=== PATIENT | female | born 1965 | race Caucasian/White ===

== ENCOUNTER → 2020-08-15 | Outpatient (CLI) | payer OTHER ==
--- NOTE | 2020-08-15 15:30 | RADIOLOGY REPORT (SQ) ---
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 NUMBER OF VIEWS: Three views. TECHNIQUE: AP and oblique views of the sacroiliac joints. LIMITATIONS: None. FINDINGS: MINERALIZATION: Normal. BONES: No acute fracture or dislocation. No worrisome bone lesions. No significant osteophytes. JOINTS: The sacroiliac joints are patent. No unusual widening, sclerosis, or fusion. SOFT TISSUES: No soft tissue swelling. No radio-opaque foreign body. OTHER: No other significant finding. IMPRESSION: NORMAL STUDY OF THE SACROILIAC JOINTS. TECHNICAL DOCUMENTATION: JOB ID: [id number] 2010 [employer]- All Rights Reserved Reading location - IP/workstation name: [email or web address]
--- NOTE | 2020-08-15 15:32 | RADIOLOGY REPORT (SQ) ---
EXAM DESCRIPTION: L SPINE WHOLE IMAGES COMPLETED DATE/TIME: 08/15/2020 2:54 pm REASON FOR STUDY: M47.817 SPONDYLS W/O MYELOPATHY OR RADICULOPATHY, LUMBOSACR REGION M47.817 SPONDY LS W/O MYELOPATHY OR RADICULOPATHY, LUMBOSACR M46.1 SACROILIITIS, NOT ELSEWHERE CLASSIFIED COMPARISON: None. NUMBER OF VIEWS: Five views including obliques. TECHNIQUE: AP, lateral, oblique, and sacral radiographic images acquired of the lumbar spine. LIMITATIONS: None. FINDINGS: MINERALIZATION: Normal. SEGMENTATION: Normal. No transitional anatomy. ALIGNMENT: Mild levoscoliosis. Grade 1 anterolisthesis of L4 on L5. VERTEBRAE: Maintained height. No fracture or worrisome bone lesion. DISCS: Disc narrowing at L4-5. POSTERIOR ELEMENTS: Mild hypertrophic facet changes from L4-S1. HARDWARE: None in the spine. PARASPINAL SOFT TISSUES: Normal. PELVIS: Intact as visualized. No fractures or worrisome bone lesions. SI joints intact. OTHER: No other significant finding. IMPRESSION: Mild scoliosis. Anterolisthesis of L4 on L5. Degenerative disc disease. Facet arthrop athy. TECHNICAL DOCUMENTATION: JOB ID: [id number] 2010 [employer]- All Rights Reserved Reading location - IP/workstation name: [email or web address]
== END ==
LOC: RAD 14:18
PROVIDERS: ATTEND Nurse Practitioner Family
DX: M47.817 Spondylosis without myelopathy or radiculopathy, lumbosacral region (principal); M51.36 Other intervertebral disc degeneration, lumbar region; M46.1 Sacroiliitis, not elsewhere classified
CPT/HCPCS: 72110; 72200

== ENCOUNTER → 2020-09-05 | Outpatient (CLI) | payer OTHER ==
--- NOTE | 2020-09-06 00:29 | EKG REPORT ---
SEVERITY:- NORMAL ECG - SINUS RHYTHM : Confirmed by: Chris Cook 06-Sep-2020 00:28:42
--- OUTSIDE RECORDS SUMMARY | 2020-09-06 15:43 | XMS REPORT ---
:1965 Author Organization [facility] Address [facility] [place] [address] [place] [id number] Care Team Providers Name Role Phone Lou Flynn Primary Care Physician Unavailable Daniel Attending Clinician Unavailable Surendra Coyle Attending Clinician Unavailable Allergies, Adverse Reactions, Alerts Allergy Allergy Status Severity Reaction(s) Onset Inactive Treating C omments Name Type Date Date Clinician arithromyci arithromyc Active Unknown n in 04-23 00:00: 00 arithromyci arithromyc Inactive Unknown n in 02-23 00:00: 00 ERYTHROMYCI Drug Active U N allergy 10-26 LACTOBIONAT 00:00: E 00 Medications Ordered Filled Start Stop Current Ordering Indication Dosage Frequency Signature Comments Components Medication Medication Date Date Medication? Clinician (SIG) Name Name Arthrotec 2019- No TID 1 tablet 50-0.2 MG 02-23 with food 00:00: 00:00 Orally 00 :00 Three times a day PredniSONE 2018- No as 10 MG (48) 02-23 directed 00:00: 00:00 Orally as 00 :00 directed Viberzi 100 2019- No BID 1 tablet MG 01-31 with food 00:00: 00:00 Orally 00 :00 Twice a day Atenolol 50 Yes QD 1 tablet MG Orally Once a day Venlafaxine Yes QD 1 capsule HCl ER 150 Orally MG Once a day Omeprazole No QD as 40 MG directed Orally Once a day Meloxicam No QD 1 tablet 15 MG Orally Once a day Horizant Yes QD 2 tablets 300 MG Orally Once a day Omeprazole Yes QD 1 capsule 20 mg Orally Once a day Problems Condition Condition Condition Status Onset Resolution Last Treatin g Comments Name Details Category Date Date Treatment Clinician Date Anxiety Anxiety Problem Active disorder disorder, 01-31 unspecified 00:00: 00 Essential Essential Problem Active hypertensio (primary) 01-31 n hypertensio 00:00: n 00 Irritable Irritable Problem Active bowel bowel 01-31 syndrome syndrome 00:00: with with 00 diarrhea diarrhea Gastro-esop Gastro-esop Problem Active hageal hageal 01-31 reflux reflux 00:00: disease disease 00 with with esophagitis esophagitis Procedures Procedure Date / Time Performed Performing Clinician Devic e OFFICE/OUTPATIENT VISIT EST 2020-08-27 14:15:00 OFFICE/OUTPATIENT VISIT EST 2020-06-25 14:15:00 OFFICE/OUTPATIENT VISIT EST 2020-05-10 10:45:00 OFFICE/OUTPATIENT VISIT [facility] 2018-10-26 09:45:00 Results Test Description Test Time Test Comments Text Results Atomic Results Result Comments CBC (INCLUDES DIFF/PLT) 2020-05-10 12:43:00 Test Item Value Reference Range Comments EOSINOPHILS (test code = 37752305) 2.9 % HEMATOCRIT (test code = 68618154) 39.2 % 35.0-45.0 MCV (test code = 48607738) 98.5 fL 80.0-100.0 RED BLOOD CELL COUNT (test code = 45478900) 3.98 Million/uL 3.80 -5.10 LYMPHOCYTES (test code = 10858975) 25.4 % ABSOLUTE LYMPHOCYTES (test code = 65192865) 1600 cells/uL 850- 3900 MCHC (test code = 79180969) 32.9 g/dL 32.0-36.0 MONOCYTES (test code = 00514874) 7.6 % ABSOLUTE BASOPHILS (test code = 53279603) 38 cells/uL 0-200 ABSOLUTE EOSINOPHILS (test code = 47382307) 183 cells/uL 15-5 00 RDW (test code = 44802617) 13.0 % 11.0-15.0 MPV (test code = 49677673) 10.6 fL 7.5-12.5 HEMOGLOBIN (test code = 07980600) 12.9 g/dL 11.7-15.5 ABSOLUTE NEUTROPHILS (test code = 96349107) 4001 cells/uL 1500 -7800 NEUTROPHILS (test code = 27130888) 63.5 % BASOPHILS (test code = 95528829) 0.6 % MCH (test code = 89064404) 32.4 pg 27.0-33.0 PLATELET COUNT (test code = 60227409) 295 Thousand/uL 140-400 WHITE BLOOD CELL COUNT (test code = 66801966) 6.3 Thousand/uL 3. 8-10.8 ABSOLUTE MONOCYTES (test code = 59471216) 479 cells/uL 200-95 0 TSH W/REFLEX TO [id number] 12:43:000.890.890.89COMPREHENSIVE METABOLIC PANEL 2020-05-10 12:43:00 Test Item Value Reference Range Comments SODIUM (test code = 16545792) 137 mmol/L 135-146 eGFR NON-AFR. MOLDOVAN (test code = 100 mL/min/1.73m2 > OR = 60 22906103) CARBON DIOXIDE (test code = 89698588) 29 mmol/L 20-32 CHLORIDE (test code = 17977666) 99 mmol/L 98-110 AST (test code = 39202988) 17 U/L 10-35 ALKALINE PHOSPHATASE (test code = 51 U/L 37-153 24278704) BILIRUBIN, TOTAL (test code = 0.5 mg/dL 0.2-1.2 03196767) CALCIUM (test code = 93390788) 10.110.1 mg/dL 8.6-10.4 GLUCOSE (test code = 63488435) 97 mg/dL 65-99 PROTEIN, TOTAL (test code = 37265799) 7.3 g/dL 6.1-8.1 CREATININE (test code = 72740757) 0.68 mg/dL 0.50-1.05 BUN/CREATININE RATIO (test code = NOT APPLICABLE (calc) 6-22 35879764) POTASSIUM (test code = 24103646) 4.4 mmol/L 3.5-5.3 eGFR (test code = 116 mL/min/1.73m2 > OR = 60 90050167) ALBUMIN (test code = 58829790) 4.6 g/dL 3.6-5.1 ALBUMIN/GLOBULIN RATIO (test code = 1.7 (calc) 1.0-2.5 87278997) GLOBULIN (test code = 72750857) 2.7 g/dL (calc) 1.9-3.7 ALT (test code = 35352068) 13 U/L 6-29 UREA NITROGEN (BUN) (test code = 14 mg/dL 7-00) LIPID PANEL, [id number] 12:43:00 Test Item Value Reference Range Comments NON HDL CHOLESTEROL (test code = 09781501) 160 mg/dL (calc) <130 HDL CHOLESTEROL (test code = 04323248) 81 mg/dL > OR = 50 TRIGLYCERIDES (test code = 67933665) 153 mg/dL <150 LDL-CHOLESTEROL (test code = 22057517) 132 mg/dL (calc) CHOL/HDLC RATIO (test code = 65275864) 3.0 (calc) <5.0 CHOLESTEROL, TOTAL (test code = 81596587) 016687 mg/dL <200 Assessments Condition Name Status Diagnosis Date Treating Clinici an Irritable bowel syndrome with diarrhea Active Spondylolisthesis, lumbar region Active Essential (primary) hypertension Active Hyperlipidemia, unspecified Active Essential (primary) hypertension Active Irritable bowel syndrome with diarrhea Active Epigastric pain Active Body mass index (BMI) 30.0-30.9, adult Active Essential (primary) hypertension Active Insomnia, unspecified Active Myalgia, unspecified site Active Encntr screen mammogram for malignant Active neoplasm of breast - Essential (primary) hypertension I10 Active O[place]ebuoboh, [place] - Gastro-esophageal reflux disease with Active O[place]ebuoboh, [place] esophagitis K21.0 - Anxiety disorder, unspecified F41.9 Active O[place]uoboh, [place] - Radiculopathy, cervical region M54.12 Active O[place]ebuoboh, [place] - Spinal stenosis, cervical region M48.02 Active O[place]uoboh, [place] - Body mass index (BMI) 27.0-27.9, adult Active Ojebuoboh, [place] Z68.27 - Essential (primary) hypertension I10 Active Ojebuoboh, [place] - Irritable bowel syndrome with diarrhea Active Ojebuoboh, [place] K58.0 - Cervicalgia M54.2 Active Ojebuoboh, I bikunle Irritable bowel syndrome with diarrhea Active Low back pain Active Other chronic pain Active Spondylolisthesis, cervical region Active Encounters Start End Encounter Admission Attending Care Care Encounter Date/Time Date/Time Type Type Clinicians Facility Department ID 2020-10-23 2020-10-23 [facility] [place] [id number] 00:00:00 00:00:00 PA 2020-08-27 2020-08-27 Outpatient Daniel [facility] F3 [id number] 14:15:00 14:15:00 [facility] [id number] and [id number] [facility] [id number] Clini 2020-06-25 2020-06-25 Outpatient Daniel [facility] 2C [id number] 14:15:00 14:15:00 [facility] [id number] s [id number] and [id number] [facility] 2020-05[facility]10 [facility] [id number] 10:45:00 10:45:00 [facility] [id number] s [id number] and [id number] [facility], 2020-04-23 2020-04-23 [facility] [place] [id number] 00:00:00 00:00:00 PA 2020-04-22 2020-04-22 [facility] [place] [id number] 00:00:00 00:00:00 PA 2020-01-15 2020-01-15 [facility] [place] [id number] 00:00:00 00:00:00 PA 2019-12-19 2019-12-19 [facility] [place] [id number] 00:00:00 00:00:00 PA 2019-10-03 2019-10-03 [facility] [place] [id number] 00:00:00 00:00:00 PA 2019-10-03 2019-10-03 [facility] [place] [id number] 00:00:00 00:00:00 PA 2019-10-02 2019-10-02 [facility] [place] [id number] 00:00:00 00:00:00 PA 2019-05-02 2019-05-02 [facility] [place] [id number] 00:00:00 00:00:00 PA 2019-02-24 2019-02-24 [facility] [place] [id number] 00:00:00 00:00:00 PA 2019-02-23 2019-02-23 [facility] [place] [id number] 00:00:00 00:00:00 PA 2019-02-15 2019-02-15 [facility] [place] [id number] 00:00:00 00:00:00 PA 2019-02-13 2019-02-13 [facility] [place] [id number] 00:00:00 00:00:00 PA 2019-02-08 2019-02-08 [facility] [place] [id number] 00:00:00 00:00:00 PA 2019-01-31 2019-01-31 [facility] [place] [id number] 00:00:00 00:00:00 PA 2018-10-26 2018-10-26 Outpatient [facility] [id number] 09:45:00 09:45:00 Jonna, Children [id number] Jayy s [id number] and [id number] [facility] [place] Social History This patient has no known social history. Vital Signs Vital Name Observation Time Observation Value Comments height 2020-04-23 11:15:00 67 [in_us] weight 2020-04-23 11:15:00 184.2 [lb_av] bmi 2020-04-23 11:15:00 28.85 kg/m2 heart rate 2020-04-23 11:15:00 59 /min blood pressure systolic 2020-04-23 11:15:00 126 mm[Hg] blood pressure diastolic 2020-04-23 11:15:00 82 mm[Hg] height 2019-02-23 10:45:00 67 [in_us] weight 2019-02-23 10:45:00 177.2 [lb_av] bmi 2019-02-23 10:45:00 27.75 kg/m2 heart rate 2019-02-23 10:45:00 61 /min blood pressure systolic 2019-02-23 10:45:00 134 mm[Hg] blood pressure diastolic 2019-02-23 10:45:00 83 mm[Hg]
== END ==
LOC: OD 15:38
PROVIDERS: ATTEND Nurse Practitioner Family
DX: I10 Essential (primary) hypertension (principal)
CPT/HCPCS: 93005; 93010